=== PATIENT | female | born 1960 | race Two or more races ===

== ENCOUNTER 2016-11-28 09:50 | Emergency (ER) | payer OTHER ==
[2016-11-28] MEDS ORDERED: GLUCOPHAGE500 M3 PO (10:13)
[2016-11-28] MEDS ORDERED: NAPROSYN500 M1 PO (10:13)
[2016-11-28] MEDS ORDERED: LANTUS100 UNITS/ SC (10:13)
== END 2016-11-28 11:36 ==
LOC: EDMED 09:50
DX: M25.521 Pain in right elbow (principal); E11.9 Type 2 diabetes mellitus without complications; Z79.4 Long term (current) use of insulin; W20.8XXA Other cause of strike by thrown, projected or falling object, initial encounter; Y92.69 Other specified industrial and construction area as the place of occurrence of the external cause; Y99.0 Civilian activity done for income or pay